=== PATIENT | female | born 1985 | race Caucasian/White ===

== ENCOUNTER 2016-11-08 04:27 | Inpatient (IN) | payer MEDICAID ==
[~2016-11-08] VITALS: Ht 149.9 cm; Wt 96.2 kg
[2016-11-08] MEDS ORDERED: TYLENOL PM1 TAB PO (05:06)
[2016-11-08] MEDS ORDERED: PRENATAL COMPLE1 TAB PO (05:06)
[2016-11-08 05:07] VITALS: BP 127/63; Ht 149.9 cm; Wt 96.2 kg
[2016-11-08] MEDS ORDERED: ZANTAC150 MG PO (05:07)
[2016-11-08 05:56] LABS: HEMATOCRIT 36.4 % (36.0-48.0); HEMOGLOBIN 12.3 g/dL (12-16); MCH 31.6 pg (26.0-34.0); MCHC 33.8 g/dL (31.0-37.0); MCV 93.6 fL (80.0-100.0); MEAN PLATELET VOLUME 10.4 fL (7.4-10.4); RBC 3.89 10x6/uL (4.00-5.40); RDW 12.8 % (11.5-14.5); WBC 10.9 10x3/uL (4.8-10.8)
[2016-11-08 07:28] LABS: APPEARANCE CLEAR (CLEAR); BILIRUBIN NEGATIVE (NEGATIVE); COLOR DK YELLOW (YELLOW); GLUCOSE NEGATIVE (NEGATIVE); KETONE NEGATIVE (NEGATIVE); LEUKOCYTE ESTERASE TRACE (NEGATIVE); NITRITE NEGATIVE (NEGATIVE); PROTEIN NEGATIVE (NEGATIVE); SPECIFIC GRAVITY 1.015 (1.005-1.020); UROBILINOGEN NORMAL (NORMAL)
[2016-11-08 07:29] LABS: BACTERIA MODERATE /hpf (NONE SEEN); EPITHELIAL CELLS 0-5 /hpf (0-5); MUCUS <1+ /lpf (NONE SEEN); WHITE CELLS - URINE 0-5 /hpf (0-5)
--- NOTE | 2016-11-08 21:13 | NUR ---
2103 VIABLE BABY GIRL DELIVERED CORD BLOOD AND GASES DONE AND SENT OUT, CORD AROUND NECK X1, TOÑORCINDY.
--- NOTE | 2016-11-08 22:01 | NUR ---
THE PATIENT REQUESTS A SHORT STAY IN THE RECOVERY ROOM SO SHE CAN SEE HER FAMILY
[2016-11-08 22:08] VITALS: BP 128/79
--- NOTE | 2016-11-08 22:16 | NUR ---
RCVD PT FROM PACU. PT LYING ON BACK, HOB 30 DEGREES. BREATH SOUNDS CLEAR & UNLABORED. 3L OF O2 VIA NC NOTED WITH PACU STATING "I THINK SHE HAS SOME APNEA." PT DENIES SHORTNESS OF BREATH. RESP COUNTED AT 16/MIN. WILL ARMEN O2 SAT. BOWEL SOUNDS HYPOACTIVE X4. PT EDU ON CLEAR LIQUID DIET UNTIL MORNING. PT VERBALIZES UNDERSTANDING. CHRIS DRAINING INTO CHRIS BAG BY GRAVITY. PT DENIES FEELING IN LEGS AT THIS TIME, STATES "MY ARMS JUST FEEL TINGLY, BUT I CAN'T FEEL OR MOVE MY LEGS." PT DENIES PAIN AT THIS TIME. SCD'S ON AND CONNECTED TO PUMP. SMALL PILLOW PROVIDED TO BRACE ABD. I.S. TEACHING DONE AT THIS TIME. PT DENIES FURTHER NEEDS. BED LOW, WHEELS LOCKED, CL IN REACH, SIDE RAILS UP X2. FAMILY TO ROOM TO VISIT.
--- NOTE | 2016-11-08 22:27 | NUR ---
DEMEROL NUCLEAR MEDICINE OFFICER INITIATED PER ORDERS. SEE EMAR. NUCLEAR MEDICINE OFFICER TEACHING DONE AT THIS TIME. PT VERBALIZES UNDERSTANDING. PT DENIES PAIN OR NEEDS AT THIS TIME. FOB REMAINS AT BEDSIDE.
--- NOTE | 2016-11-08 22:33 | NUR ---
NS WITH 20 U PITOCIN INITIATED VIA PUMP @ 125ML/HR. PT RETURNED FROM PACU WITH LR INFUSING. ORDERS ARE FOR PITOCIN POST DELIVERY. SEE EMAR.
--- NOTE | 2016-11-08 23:18 | NUR ---
INFANT TO ROOM VIA OPEN CRIB PER THIS RN. ID BANDS VERIFIED PER PROTOCOL. MOTHER BANDED AND FINGER PRINTED AT THIS TIME. PLACED IN MOTHER'S ARMS FOR . INFANT HAS GOOD LATCH ON LT BREAST. PT DENIES FURTHER NEEDS. WILL CONT. TO MONITOR.
--- NOTE | 2016-11-09 00:09 | NUR ---
TORADOL GIVEN FOR PAIN RATED 7/10 IN ABD DESCRIBED CRAMPING. PT AT THIS TIME. EDU PT ON PITOCIN AND BF CAUSING "CRAMP" AND THAT IT IS THE UTERUS CTX BACK DOWN TO NORMAL SIZE. PT VERBALIZED UNDERSTANDING. 500ML CLEAR YELLOW URINE EMPTIED FROM UROMETER AT THIS TIME. PT DENIES FURTHER NEEDS WILL CONT. TO MONITOR. FOB REMAINS AT BEDSIDE.
--- NOTE | 2016-11-09 00:45 | NUR ---
PAIN REASSESSMENT COMPLETE. PT RATES PAIN 4/10 CURRENTLY AND TOLERABLE. INFANT IN OPEN CRIB. FOB REMAINS AT BEDSIDE. PT DENIES FURTHER NEEDS AT THIS TIME.
--- NOTE | 2016-11-09 01:05 | NUR ---
NBN TO ROOM FOR V/S ON INFANT, REPORTS PT CURRENTLY BF AT THIS TIME AND DENIES NEEDS.
--- NOTE | 2016-11-09 02:01 | NUR ---
ROUNDS MADE. PT SITTING UP IN BED AT THIS TIME. FOB REMAINS AT BEDSIDE. PT DENIES PAIN OR NEEDS AT THIS TIME. WILL CONT. TO MONITOR.
--- NOTE | 2016-11-09 03:25 | NUR ---
NBN TO ROOM TO ASSESS . PT AND FOB NOTED TO BE SLEEPING. BACK TO NBN PER Marcelo ROACH RN.
--- NOTE | 2016-11-09 04:18 | NUR ---
ROUNDS MADE. PT LYING ON BACK, HOB 45 DEGREES. PT RESTING, BUT AWAKENS UPON THIS RN ENTERING ROOM. FOB SLEEPING ON BEDSIDE COUCH. PUMPS CLEARED AT THIS TIME. 150 ML CLEAR YELLOW URINE EMPTIED FROM UROMETER. CLEAN GOWN PROVIDED AT THIS TIME. PT REFUSES TO CHANGE POSITION. EDU PT ON NEED FOR FREQUENT POSITION CHANGES, PT VERBALIZES UNDERSTANDING. FUNDUS REMAINS FIRM, U/1 AND MIDLINE. SMALL LOCHIA RUBRA NOTED ON PERIPAD. PT DENIES PAIN OR FURTHER NEEDS. WILL CONT TO MONITOR.
[2016-11-09 06:14] LABS: RAPID PLASMA REAGIN Non Reactive (Non Reactive)
--- NOTE | 2016-11-09 06:16 | NUR ---
ROUNDS MADE. PT SITTING UP IN BED WITH C/O PAIN 02/13 AND REQUESTS TORADOL. PT IS NOT CURRENTLY TAKING PO MEDS INCLUDING MOTRIN AT THIS TIME. TORADOL ADM PER ORDERS. SEE EMAR. Maria Esther JACOBO RN TO ROOM WITH INFANT AT THIS TIME. INFANT PLACED IN MOTHER'S ARMS. 75 ML DARK YELLOW URINE EMPTIED FROM CHRIS BAG. PT ENCOURAGED TO DRINK MORE FLUIDS. PT VERBALIZES UNDERSTANDING. ICE WATER REQUESTED AND RECEIVED. PT DENIES FURTHER NEEDS AT THIS TIME.
--- NOTE | 2016-11-09 06:28 | NUR ---
CURRENT NS INFUSION COMPLETE, OLD BAG DOWN, NEW BAG UP TO PRESENT TUBING.
[2016-11-09 06:50] LABS: HEMATOCRIT 34.3 % (36.0-48.0); HEMOGLOBIN 11.4 g/dL (12-16); MCH 31.2 pg (26.0-34.0); MCHC 33.2 g/dL (31.0-37.0); MEAN PLATELET VOLUME 10.3 fL (7.4-10.4); PLATELET COUNT 207 10x3/uL (130-400); RBC 3.65 10x6/uL (4.00-5.40); RDW 12.7 % (11.5-14.5); WBC 21.3 10x3/uL (4.8-10.8)
[2016-11-09 07:22] LABS: LYMPHOCYTES 8 % (15-50); MONOCYTES 5 % (2-11); NEUTROPHILS 83 % (40-80); PLATELET ESTIMATE NORMAL
--- NOTE | 2016-11-09 07:30 | NUR ---
Infant to breast at this time, pt rates pain at 3/10. will call so that assessment can be completed when finished feeding.
--- NOTE | 2016-11-09 08:37 | OP ---
PATIENT NAME: FILIPE CHANCE MEDICAL RECORD: [id number] :85 [id number] ADMISSION DATE:11/08/16 SURGEON: KARLOS SOARES MD DATE OF OPERATION: 11/08/2016 PREOPERATIVE DIAGNOSES: 1. Intrauterine at 39 weeks, 2 days. 2. Failure of descent. 3. Secondary arrest of dilation. 4. Nonreassuring heart rate tracing remote from delivery. POSTOPERATIVE DIAGNOSES: 1. Intrauterine at 39 weeks, 2 days. 2. Failure of descent. 3. Secondary arrest of dilation. 4. Nonreassuring heart rate tracing remote from delivery. 5. Delivered. SURGEON: Karlos Soares MD ANESTHESIA: Epidural anesthesia with Hillary Eagle CRNA. PROCEDURE: Primary low-transverse . FINDINGS: Delivery of viable female infant from vertex presentation via primary low-transverse under epidural anesthesia at 2104 p.m. with weight of 7 pounds, 0 ounces and scores of 9 and 9 at 1 and 5 minutes respectively. A nuchal times 1 was noted and reduced. The cord was clamped and cut. The was bulb suctioned and handed to awaiting pediatric nursing personnel. The placenta was delivered manually with intact 3-vessel cord at 2105 p.m. Twenty units of Pitocin and 1 liter of normal saline was begun IV. The uterus was noted to be enlarged, but otherwise normal-appearing uterus was noted. Normal-appearing ovaries and tubes bilaterally. The patient went to the recovery room in stable condition and the to the nursery. DESCRIPTION OF PROCEDURE: After informed consent was given, the patient was taken to the operating room where epidural anesthesia had been bolused and was found to be adequate. She was placed in a dorsal supine position with a leftward tilt. A Massey catheter was already in place with clear urine return noted. She was prepped and draped sterilely. When adequate anesthesia was established, a Pfannenstiel skin incision was made with scalpel and carried through to the underlying layer of fascia. The fascia was incised in the midline and the fascial incision extended bilaterally with the Noel scissors. The superior portion of the fascial incision was grasped with 2 Afsaneh clamps. The rectus muscles dissected off sharply and bluntly. Attention was then turned to the inferior portion of the fascial incision, which was again grasped with 2 Afsaneh clamps and the rectus muscles dissected off sharply and bluntly. Rectus muscles were in the midline. Peritoneum identified and entered bluntly with a finger. This incision was extended superiorly and inferiorly with good visualization of the bladder. The bladder blade was inserted and vesicouterine peritoneum was grasped with smooth pickups and entered sharply with Metzenbaum scissors. This incision was extended bilaterally and a bladder flap created digitally. The bladder blade was reinserted. The hysterotomy was created with a knife. This was extended bilaterally bluntly and the 's head delivered atraumatically. A nuchal times 1 was noted and reduced. The OPERATIVE REPORT [id number] FILIPE CHANCE cord was clamped and cut. The was bulb suctioned and handed to awaiting pediatric nursing personnel. The placenta was delivered manually intact and passed off the field as specimen. Cord blood was obtained. The interior of the uterus was wiped with a moist lap sponge. Attempt was made to exteriorize the uterus, but the uterus was noted to be quite enlarged. No discrete fibroid tumors were palpable, but nonetheless, the uterus was approximately 20-23 cm size and could not be exteriorized through the small skin incision, so the uterus was left in situ. The interior of the uterus was wiped with a moist lap sponge. The apices of the hysterotomy as well as the superior and inferior aspects were clamped with ring clamps to aide in hemostasis and visualization. The hysterotomy was then closed with 0 Vicryl in a running locked fashion. Excellent hemostasis was noted. The abdomen was irrigated profusely and noted to be hemostatic. Arben dust was placed over the hysterotomy to aid additionally in hemostasis. The rectus muscles were reapproximated in the midline with 3 interrupted chromic sutures. The fascia was closed with 1-0 Vicryl in a running fashion, locking the first suture. The subcutaneous tissue was irrigated, any bleeders cauterized with the Bovie and when noted to be sufficiently dry, it was closed in 2 layers with 3-0 Vicryl in a running fashion and the skin was closed with 3-0 Monocryl in a subcuticular fashion. Dermabond and pressure dressing were applied. Clear urine was noted at completion of the procedure. The patient tolerated procedure well. Sponge, lap, needle, and instrument counts were reported correct times 2 and the patient went to the recovery room in stable condition and the infant to the nursery. ESTIMATED BLOOD LOSS: 800 cc. URINE OUTPUT: 200 cc. SPECIMENS: Placenta and cord blood. COMPLICATIONS: None. TRANSINT:[id number] Voice Confirmation ID: [id number] DOCUMENT ID: [id number] KARLOS SOARES MD at 0837 CC: [id number] DICTATION DATE: 11/08/162212 LAND CLASSIFIER: 11/08/162238 ADM IN [place] [id number] [place] [address]
[2016-11-09 08:45] VITALS: BP 117/59
--- NOTE | 2016-11-09 08:45 | NUR ---
AM ASSESSMENT AND VS COMPLETED AND CHARTED ON FLOWSHEET. FUNDUS FIRM AT U/1 WITH NO CLOTS NOTED AND LIGHT BLEEDING. BIKINI INCISION IS COVERED WITH ABD DRESSING THAT IS CLEAN AND DRY. IV TO LEFT WRIST AREA PATENT AND INFUSING PER ORDERS. SCD BILAT LOWER LEGS AND PUMP IS ON. PT DENIES PASSING GAS BUT DOES HAVE ACTIVE BOWEL SOUNDS X 4. RATES PAIN AT 4-5/10.
--- NOTE | 2016-11-09 09:07 | NUR ---
DEMEROL AGENCY MANAGER D/C AND IV CHANGED TO SALINE LOCK. Zhang CATH REMOVED INTACT WITH 150ML CLEAR URINE NOTED TO COLLECTION CANISTER. FUNDUS FIRM AT U/U WITH NO CLOTS NOTED. PT IS ABLE TO MOVE SELF SO THAT SHE IS SITTING ON SIDE OF THE BED. DENIES DIZZINESS AND NO NAUSEA. TO BATHROOM WITH ASSISTANCE FROM SPOUSE. ATTEMPTS BUT UNABLE TO VOID AT THIS TIME. PERICARE DONE PER PATIENT. PADS AND PANTIES PROVIDED AND SHE DRESSES HERSELF. PINK PAD ON BED CHANGED AND EXPLAINED THAT LINENS WOULD BE CHANGED WHEN SHE TAKES HER SHOWER. WALKS BACK TO BED BY HERSELF AND ABLE TO POSITION SELF TO RIGHT SIDE. RATES PAIN AT 7/10 AND IS AGREEABLE TO PAIN MEDS. SPOUSE REMAINS AT BEDSIDE.
--- NOTE | 2016-11-09 09:17 | NUR ---
Bryan Mata 11/09/16 LE@ 8:00 S: Patient states this is her 3rd baby, first , states she is hot, just turned down the ac, trying to eat breakfast, her liquid food, and is going good. O: Patient sitting up in bed, FOB at bedside, light off in room, and infant in nursery. Congratulated on delivery, explained does take time and patience in the beginning. Explain how to verify is latched correct, turn infant tummy to tummy and nose opposite of nipple. Allow infant to self-latch and gently support head. Feed on demand, provided handout on feeding cues and explained. Encouraged to latch for every feeding this will help with establish her milk supply. If she has any questions or concerns about infant feedings, please let us know. Provided and explained handouts on skin to skin, waking a sleeping baby, positions for , and starting a feeding. Asked if her nipples are sore or any concerns, denied sore nipples, and declined questions. Asked if she receives WIC, patient states yes, offered to make WIC recertification appointment, provided date and time. Will follow up tomorrow. A: Patient appears confident with . P: Continue to support exclusively . Lynda Mendze, CLC
--- NOTE | 2016-11-09 09:45 | NUR ---
PERCOCET 10/325MG GIVEN WITH LARGE ICE WATER. PT ASK THAT LIGHTS BE TURNED OFF AND A NO VISITORS SIGN PLACED ON THE DOOR. SIDE RAILS UP X 2 WITH PHONE AND CALL LIGHT IN REACH. INFANT IN NURSERY AT THIS TIME.
--- NOTE | 2016-11-09 11:15 | NUR ---
PT IS RESTING ON HER RIGHT SIDE WITH EYES CLOSED AND RESP EVEN, NO DISTRESS NOTED, LEFT UNDISTURBED AT THIS TIME. SIDE RAILS UP X 2 WITH PHONE AND CALL LIGHT IN REACH
[2016-11-09 13:45] VITALS: BP 123/63
--- NOTE | 2016-11-09 13:45 | NUR ---
RATES PAIN AT 2/10. AND STATES SHE IS READY TO GET IN TO THE SHOWER. MOVES SELF TO SITTIN UP ON SIDE OF BED WITHOUT ASSISTANCE AND AMB TO BATHROOM PER HERSELF. VOIDS 400ML BEFORE GETTING IN TO SHOWER. BED LINENS CHANGED WHILE PT IS IN SHOWER. SPOUSE REMAINS AT BEDSIDE AND WILL CALL IF ASSISTANCE IS NEEDED REMOVING BANDAGE.
--- NOTE | 2016-11-09 14:10 | NUR ---
CALLED TO ROOM, PT REQUEST THAT NURSE REMOVE ABD BANDAGE. BANDAGE IS REMOVED EASILY BEFORE SHE GETS OUT OF THE SHOWER. INCISION IS CLEAN, NO REDNESS OR SWELLING NOTED. PT GIVEN VERBAL INSTRUCTIONS ON CARE OF INCISION. FAMILY AND AT BEDSIDE.
--- NOTE | 2016-11-09 14:30 | NUR ---
TO ROOM AND VERIFIED THAT INCISION CARE WAS UNDERSTOOD AND DONE, AREA IS DRY AND COVERED WITH DEVON PAD AND ADVISED. INFANT TO BREAST AT THIS TIME, CONTINUE TO RATE PAIN AT 2/10. LARGE ICE WATER PER REQUEST. SIDE RAILS UP X 2 WITH PHONE AND CALL LIGHT IN REACH AND FAMILY AT BEDSIDE.
--- NOTE | 2016-11-09 16:15 | NUR ---
PT SITTING UP IN BED WITH TO BREAST, WILL CALL WHEN FINISHED SO THAT SHE CAN TRANSFER ROOMS. SPOUSE TRANSFERS PERSONNEL BELONGINGS TO NEW ROOM.
--- NOTE | 2016-11-09 16:45 | NUR ---
AMB TO ROOM 1257, ORIENT TO ROOM, BATHROOM AND REMOTES. DENIES ANY NEEDS AND STATES UNDERSTANDING THAT NO ONE WILL BE AT NURSES STATION JUST OUTSIDE HER DOOR AND TO USE CALL LIGHT OR CALL LABOR AND DELIVERY. BROUGHT TO ROOM VIA CRIB BY NURSERY NURSE.
--- NOTE | 2016-11-09 18:00 | NUR ---
CALLS OUT WITH REQUEST FOR PAIN MEDICATION. RATES PAIN AT INCISION SITE CONSTANT, 7/10. MEDS GIVEN CHARTED ON EMAR, ENCORAGED HER TO WALK AROUND ROOM TO AID IN PASSING GAS TO ALSO DECREASE PAIN. NO NEEDS AT THIS TIME.
[2016-11-09 19:10] VITALS: BP 120/60
--- NOTE | 2016-11-09 19:10 | NUR ---
RCVD PT FROM Adebayo DAVENPORT RN. PT SITTING UP IN BED. INFANT UP IN FOB'S ARMS. PT RATES PAIN 4/10 AND REQUESTS MOTRIN AT THIS TIME. BREATH SOUNDS CLEAR AND UNLABORED X2. HR-RRR, PPP. BOWEL SOUNDS ACTIVE X4. PT REPORTS NOT PASSING GAS YET, BUT SAYS SHE IS GOING TO WALK SOME TONIGHT. FUNDUS REMAINS FIRM AND U/2. MOD. LOCHIA RUBRA NOTED ON PERIPAD, NO CLOTS. PIV TO LT WRIST SL AT THIS TIME. NO EDEMA OR ERYTHEMA NOTED TO SITE. PT DENIES FURTHER NEEDS. PLAN TO RETURN WITH MOTRIN. BED LOW, WHEELS LOCKED, SIDE RAILS UP X2, CL IN REACH.
--- NOTE | 2016-11-09 20:20 | NUR ---
PAIN REASSESSMENT COMPLETE. PT RATES PAIN 4/10 CURRENTLY AND TOLERABLE. PT AT THIS TIME. DENIES FURTHER NEEDS. WILL CONT. POC.
--- NOTE | 2016-11-09 21:18 | NUR ---
ROUNDS MADE. PT DENIES NEEDS AT THIS TIME. UP IN ARMS. FOB REMAINS AT BEDSIDE. PT STATES SHE WILL WANT PERCOCET AROUND 10. PLANS TO DO SAME. PT WILL CALL FOR FURTHER NEEDS UNTIL THEN.
--- NOTE | 2016-11-09 22:16 | NUR ---
PT REQUESTS & RECEIVES PERCOCET 10/325MG X1 TAB FOR PAIN RATED 7/10 AT THIS TIME. PT DENIES FURTHER NEEDS. WILL CONT TO MONITOR.
--- NOTE | 2016-11-09 23:48 | NUR ---
ROUNDS MADE. PT RESTING, EYES CLOSED, RESP EVEN & UNLABORED X2. FOB SLEEPING IN BEDSIDE CHAIR. PT LEFT UNDISTURBED AT THIS TIME.
--- NOTE | 2016-11-10 02:18 | NUR ---
ROUNDS MADE. PT UP TO BR TO VOID AT THIS TIME. FOB HOLDING UP IN ARMS. PT REQUESTS & RECEIVES PERCOCET 5/325MG X1 TAB AND MOTRIN 600MG X1 TAB FOR PAIN RATED 6/10 IN ABD AT THIS TIME. PT DENIES FURTHER NEEDS. WILL CONT. TO MONITOR.
--- NOTE | 2016-11-10 03:00 | NUR ---
PAIN REASSESSMENT COMPLETE. PT RATES PAIN 2/10 CURRENTLY. FOB REMAINS AT BEDSIDE WITH IN OPEN CRIB AT THIS TIME. PT DENIES FURTHER NEEDS. WILL CONT. TO MONITOR.
--- NOTE | 2016-11-10 03:12 | NUR ---
Radiology here for US of LLE.
--- NOTE | 2016-11-10 06:14 | NUR ---
ROUNDS MADE. PT AT THIS TIME. C/O PAIN 02/13 IN ABD AT THIS TIME. REQUESTS & RECEIVES PERCOCET 5/325MG X1 TAB. PT DENIES FURTHER NEEDS AT THIS TIME.
[2016-11-10 07:10] LABS: BASOPHILS 0.1 % (0.0-2.0); EOSINOPHILS 1.4 % (0-7); HEMATOCRIT 33.6 % (36.0-48.0); HEMOGLOBIN 11.1 g/dL (12-16); IMMATURE GRANULOCYTES 0.3 % (0-5); LYMPHOCYTES 13.4 % (15-50); MCH 31.6 pg (26.0-34.0); MCV 95.7 fL (80.0-100.0); MEAN PLATELET VOLUME 9.9 fL (7.4-10.4); MONOCYTES 5.5 % (2-11); NEUTROPHILS 79.3 % (40-80); PLATELET COUNT 229 10x3/uL (130-400); RBC 3.51 10x6/uL (4.00-5.40); RDW 13.1 % (11.5-14.5); WBC 22.6 10x3/uL (4.8-10.8)
[2016-11-10 08:00] VITALS: BP 119/51
--- NOTE | 2016-11-10 08:00 | NUR ---
THIS RN AND Donte BUCHANAN TO ROOM WITH DR OLIVERA. PT SITTING UP ON SIDE OF BED WITH C/O CRAMPING THAT SHE RATES AT 4-5/10. SHE ALSO TELLS DR OLIVERA THAT SHE FEELS LIKE SHE CANNOT TAKE A DEEP BREATH. DEMONSTRATES USE OF INCENTIVE SPRIORMETER CORRECTLY BUT DOES NOT COUGH BECAUSE "IT REALLY HURTS" LUNGS CLEAR PER MD. PT SHOWN HOW TO USE SUPPORT PILLOW TO BRACE INCISION DURING COUGH, SHE STATES THAT HELP SOME. BOWEL SOUNDS ACTIVE X 4 BUT CONTINUE TO DENY PASSING GAS, VERBAL ORDER RECEIVED FOR ABDOMINAL BINDER. PT QUESTIONS WHEN DISCHARGE WILL OCCUR AND UNDERSTANDS PEDI HAS NOT YET ROUNDED ON INFANT. [facility]. PT OFFERED MOTRIN FOR PAIN AND IS AGREEABLE. IN CRIB AT BEDSIDE, SPOUSE ALSO IN ROOM. PT DENIES ANY NEEDS AT THIS TIME.
[2016-11-10] MEDS ORDERED: IBUPROFEN600 MG PO (08:09)
[2016-11-10] MEDS ORDERED: PERCOCET 5-3251 TAB PO (08:09)
--- NOTE | 2016-11-10 08:35 | NUR ---
LE@ 8:00 Vahe Mata 11/10/16 S: Patient states is going great. She feels sore but is getting around. Infant has been doing so great!! O: Patient sitting up on side of bed, L&D nurse taking her vitals. FOB at bedside, infant came in room a little while later in room by nursery nurse. Encouraged to continue to latch for every feeding, supply and demand, what baby takes out her body will make more of. She is doing a great job with . Provided and explain handout on what to expect the first week, engorgement, and hand expression. The next several weeks are really important, because she will be working on establishing her milk supply. Place the baby to the breast for every feeding, feed infant on demand, explain feeding cues, provided work cell number, and please call with any questions or concerns. Asked if she has any questions or concerns, parents declined, Vahe states she feels good about , doesn't see she will have any problems, thanked for helping with . A: Patient confident with experience. P: Continue to support exclusively . Lynda Mendez, CLC
--- NOTE | 2016-11-10 09:05 | NUR ---
Motrin 600mg given per request as charted on emar. Pt up and walking around room per Dr Rincon suggestion to relieve gas. Abdominal binder fitted and pt shown how it should fit. she states that feels like she can now stand upright and breath easier. Denies any needs at this time. Spouse at bedside holding .
--- NOTE | 2016-11-10 11:34 | NUR ---
rounds made, pt sitting in chair at bedside with to breast. Rates pain at 3/10 but request "something for heartburn". Bicitra given as charted on emar. Large ice water and lemonlime soda provided per request. Denies any other needs at this time. spouse at bedside, phone and call light within patients reach.
--- NOTE | 2016-11-10 12:40 | NUR ---
PT CALLS OUT WITH REQUEST FOR PAIN MED. MED GIVEN CHARTED ON EMAR. RATES PAIN AT 6/10 AND STATES "I JUST FINISHED FEEDING". ALSO REPORTS THAT SHE IS PASSING GAS AND DENIES PAIN IN SHOULDER OR DIFFICULTY TAKING A DEEP BREATH SINCE SHE STARTED WEARING THE ABDOMINAL BINDER. IN CRIB AT BEDSIDE, PT AND SPOUSE GATHERING PERSONNEL THINGS TOGATHER TO PERPARE FOR DISCHARGE.
--- NOTE | 2016-11-10 13:00 | NUR ---
VERBAL AND WRITTEN DISCHARGE INSTRUCTIONS GONE OVER WITH PT, PRINTED INFORMATION PROVIDED FOR POST OP CARE, TAKING MEDICATION AND INCISION CARE. PT STATES HER UNDERSTANDING AND DENIES ANY QUESTIONS OR CONCERNS. WILL CALL FOR WHEELCHAIR WHEN SHE HAS IN CARRIER AND READY TO BE TAKEN OUT TO CAR.
--- NOTE | 2016-11-10 13:15 | NUR ---
PT TAKEN OUT BY WHEELCHAIR WITH IN CARRIER. HOME BY PRIVATE CAR WITH SPOUSE.
== END 2016-11-10 13:15 | disposition home or self-care (01) | DRG 766 ==
LOC: D.LD 04:27
PROVIDERS: ADMIT Specialist
PROC: 10D00Z1 Extraction of Products of Conception, Low, Open Approach (ICD-10-PCS; principal; 2016-11-08 20:37)
DX: O99.214 Obesity complicating childbirth (principal); Z3A.39 39 weeks gestation of pregnancy; Z37.0 Single live birth; O69.81X0 Labor and delivery complicated by cord around neck, without compression, not applicable or unspecified; O26.893 Other specified pregnancy related conditions, third trimester; Z67.91 Unspecified blood type, Rh negative; O44.43 Low lying placenta NOS or without hemorrhage, third trimester; O62.1 Secondary uterine inertia; Z87.891 Personal history of nicotine dependence

== ENCOUNTER → 2018-06-08 07:56 | Outpatient (CLI) | payer OTHER ==
[~2018-06-08 07:56] MED LIST: IBUPROFEN600 MG PO; PERCOCET 5-3251 TAB PO; PRENATAL COMPLE1 TAB PO; TYLENOL PM1 TAB PO; ZANTAC150 MG PO
== END | disposition home or self-care (01) ==
LOC: D.NM 05-30 11:00
DX: R10.13 Epigastric pain (principal)